=== PATIENT | female | born 1985 | race Caucasian/White ===

== ENCOUNTER 2021-11-26 21:02 | Emergency (ER) | payer BC ==
[2021-11-26 21:56] LABS: HEMOGLOBIN 12.4 gm/dl (12.3-15.3); RED BLOOD COUNT 4.12 M/UL (4.00-5.10); WHITE BLOOD COUNT 11.3 K/UL (4.5-11.0)
[2021-11-26] MEDS ORDERED: CEPHALEXIN500 M1 PO (22:28)
== END 2021-11-26 22:53 | disposition home or self-care (01) ==
LOC: ER1 21:02
PROVIDERS: Physician Assistant
DX: R04.0 Epistaxis (principal); Z88.2 Allergy status to sulfonamides; Z88.1 Allergy status to other antibiotic agents
CPT/HCPCS: 30903; 85025; 96372; 99283; C9046; J1885